=== PATIENT | female | born 1975 | race Two or more races ===

== ENCOUNTER 2021-02-24 11:46 | Inpatient (IN) | payer BC, OTHER ==
[~2021-02-24] VITALS: Ht 152.4 cm; Wt 71.0 kg
[2021-02-24 12:09] LABS: Urine WBC None Seen /hpf (0 - 5)
[2021-02-24 12:30] LABS: Urine Bacteria FEW /hpf (None Seen); Urine Blood Negative /uL (Negative); Urine Specific Gravity 1.005 (1.001-1.035)
[2021-02-24] MEDS ORDERED: ACETAMINOPHEN 325 MG TAB PO ONE (12:30)
[2021-02-24 13:01] LABS: Basophils # (auto) 0.1 10 ^3/uL (0-0.2); Basophils % (auto) 1.2 % (0.0-2.0); Eosinophils # (auto) 0.1 10 ^3/uL (0-0.8); Eosinophils % (auto) 0.9 % (0.0-7.0); Hematocrit 36.7 % (36.0-46.0); Hemoglobin 12.4 g/dL (12.2-16.2); Lymphocytes # (auto) 2.5 10 ^3/uL (0.4-5.4); Lymphocytes % (auto) 39.9 % (10.0-50.0); Mean Corpuscular Hemoglobin 29.4 pg (28.0-32.0); Mean Corpuscular Hgb Conc. 33.7 g/dL (32.0-36.0); Mean Corpuscular Volume 87.1 fL (80.0-100.0); Monocytes # (auto) 0.4 10 ^3/uL (0-1.3); Monocytes % (auto) 5.9 % (0.0-12.0); Neutrophils # (auto) 3.3 10 ^3/uL (1.6-8.6); Neutrophils % (auto) 52.1 % (37.0-80.0); Nucleated Red Blood Cells % 0.1 %; Platelet Count (auto) 214 10^3/uL (140-450); Red Blood Cells 4.22 10^6/uL (4.0-5.20); Red Cell Distribution Width 13.1 % (11.8-14.3); White Blood Cell 6.3 10^3/uL (4.4-10.8)
[2021-02-24 13:17] LABS: Albumin 3.9 g/dL (3.4-5.0); Anion Gap 8 (5-15); Blood Urea Nitrogen 11 mg/dL (7-18); Calcium 9.5 mg/dL (8.5-10.1); Carbon Dioxide 23 mmol/L (21-32); Chloride 110 mmol/L (98-107); Glucose 89 mg/dL (74-106); INR 0.94 (0.9-1.15); Partial Thromboplastin Time 26.2 sec (23.0-31.2); Potassium 4.4 mmol/L (3.5-5.1); Sodium 141 mmol/L (136-145)
[2021-02-24 13:23] LABS: Alanine Aminotransferase 49 U/L (13-56); Alkaline Phosphatase 82 U/L (45-117); Aspartate Aminotransferase 30 U/L (15-37); BUN/Creatinine Ratio 21.6; Bilirubin, Total 0.4 mg/dL (0.2-1.0); GFR African American 166 mL/min; GFR Non-African American 137 mL/min; Total Protein 7.3 g/dL (6.4-8.2)
[2021-02-24] MEDS ORDERED: MORPHINE SULF INJ 2 MG/ML SYRINGE 1ML IV ONE (16:30)
[2021-02-24] MEDS ORDERED: ONDANSETRON HCL 4 MG/2 ML VIAL IV ONE (16:30)
[2021-02-24] MEDS ORDERED: ACETAMINOPHEN 325 MG TAB PO PRN (18:30)
[2021-02-24] MEDS ORDERED: MORPHINE SULF INJ 2 MG/ML SYRINGE 1ML IV PRN (18:30)
[2021-02-24] MEDS ORDERED: NITROGLYCERIN 0.4 MG SL TAB SL PRN (18:30)
[2021-02-24] MEDS ORDERED: PANTOPRAZOLE 40 MG TAB PO ONE (18:30)
[2021-02-24 22:00] VITALS: BP 119/70
[2021-02-24] MEDS ORDERED: TEMAZEPAM 15 MG CAP PO ONE (22:45)
[2021-02-24] MEDS ORDERED: ONDANSETRON HCL 4 MG/2 ML VIAL IV PRN (22:45)
[2021-02-24 23:01] VITALS: BP 119/70
[2021-02-24] MEDS ORDERED: MULT-1018 PO (23:29)
[2021-02-24] MEDS ORDERED: MELA3TAB27 PO (23:29)
[2021-02-24] MEDS ORDERED: APPL188C PO (23:30)
[2021-02-24] MEDS ORDERED: CHOL20007 PO (23:30)
[2021-02-24] MEDS ORDERED: SPECCAP4 OR (23:30)
[2021-02-25 05:15] VITALS: BP 104/68
[2021-02-25 08:57] VITALS: BP 98/64
[2021-02-25] MEDS: PANTOPRAZOLE 40 MG TAB PO SCH (09:53)
[2021-02-25 12:51] VITALS: BP 107/71
[2021-02-25] MEDS ORDERED: PROMETHAZINE HCL 25 MG/ML 1ML IV PRN ×3 (14:00→20:30)
[2021-02-25] MEDS ORDERED: ONDANSETRON HCL 4 MG/2 ML VIAL IV PRN (14:00)
[2021-02-25] MEDS ORDERED: HYDROcodone-ACET 5/325MG TAB PO PRN (14:00)
[2021-02-25 16:49] VITALS: BP 126/73
[2021-02-25] MEDS: METOCLOPRAMIDE HCL 10 MG TAB PO SCH (22:29)
[2021-02-25] MEDS: VALPROATE INJ 1,000 MG in D5W 5% 50 ML IV SCH (22:30)
[2021-02-25 22:35] VITALS: BP 139/90
[2021-02-25] MEDS: SODIUM CHLORIDE 0.9% 1,000 ML IV SCH (22:54)
[2021-02-26 05:07] VITALS: BP 106/68
[2021-02-26] MEDS: SODIUM CHLORIDE 0.9% 1,000 ML IV SCH ×2 (05:35→14:00)
[2021-02-26] MEDS: METOCLOPRAMIDE HCL 10 MG TAB PO SCH ×2 (05:36→14:00)
[2021-02-26 08:43] VITALS: BP 101/60
[2021-02-26] MEDS: PANTOPRAZOLE 40 MG TAB PO SCH (09:57)
[2021-02-26] MEDS: VALPROATE INJ 1,000 MG in D5W 5% 50 ML IV SCH (10:23)
[2021-02-26] MEDS ORDERED: METO-517 PO (11:47)
[2021-02-26] MEDS ORDERED: METH4PAK PO (11:47)
[2021-02-26 12:44] VITALS: BP 120/78
[2021-02-26 15:44] VITALS: BP 120/78
[2021-02-26 16:27] VITALS: BP 119/64
== END 2021-02-26 21:32 | disposition home health service (06) | DRG 103 ==
LOC: ER 11:46 → TELE 18:19 → TELE-CENTR 20:49
PROVIDERS: ADMIT Nurse Practitioner Acute Care; ATTEND Internal Medicine
DX: G43.909 Migraine, unspecified, not intractable, without status migrainosus (principal); E11.9 Type 2 diabetes mellitus without complications; F17.210 Nicotine dependence, cigarettes, uncomplicated; F32.9 Major depressive disorder, single episode, unspecified; I10 Essential (primary) hypertension; E66.9 Obesity, unspecified; Z20.822 Contact with and (suspected) exposure to COVID-19; R07.89 Other chest pain; G40.909 Epilepsy, unspecified, not intractable, without status epilepticus; I95.1 Orthostatic hypotension; T50.B95A Adverse effect of other viral vaccines, initial encounter; Y92.89 Other specified places as the place of occurrence of the external cause; I25.2 Old myocardial infarction; Z82.49 Family history of ischemic heart disease and other diseases of the circulatory system; Z83.3 Family history of diabetes mellitus; Z90.710 Acquired absence of both cervix and uterus; Z98.84 Bariatric surgery status; Z68.29 Body mass index [BMI] 29.0-29.9, adult; Z88.1 Allergy status to other antibiotic agents; Z88.2 Allergy status to sulfonamides
CPT/HCPCS: 36415; 70450; 71046; 80053; 81001; 84484; 85025; 85379; 85610; 85730; 87426; 93005; 93306; 96374; 96375; G0378; J2405; J7060